=== PATIENT | female | born 1945 | race Caucasian/White ===

== ENCOUNTER → 2019-04-16 | Outpatient (CLI) | payer MEDICARE, OTHER | LOC: COL.VAS 09:04 | DX: I70.1 Atherosclerosis of renal artery (principal); I10 Essential (primary) hypertension ==

== ENCOUNTER → 2020-11-08 | Outpatient (CLI) | payer MEDICARE, OTHER | LOC: COL.RAD 11:30 | DX: Z53.9 Procedure and treatment not carried out, unspecified reason (principal) ==